=== PATIENT | female | born 1940 | race Caucasian/White ===

== ENCOUNTER 2017-10-31 13:09 | Emergency (ER) | payer MEDICARE, BC ==
[~2017-10-31] VITALS: Ht 160 cm; Wt 88.5 kg
[~2017-10-31 13:09] MED LIST: ABAC300; ACEASPCAF PO; ALBU90OI INH; ASPI325 PO; ASPI81CH PO; ASPI81EC PO; AZIT250 PO; BENZ100A PO; CHOL10002 PO; CIPR500 PO; CONEST.625 PO; CONEST.9 PO; CYAN1000 PO; CYAN1000I IM; DOCU100 PO; ERGO400 PO; GUAI600T33 PO; HYDACE10B PO; IBUP400 PO; LATA.005SO BOTHEYES; LOSA25 PO; LOSA50 PO; MAGOXI400 PO; METR500 PO; MICROZIDE12.5 M1 PO; MOXI400 PO; Norco 5-325 Ta1 EACH PO; ONDA4 PO; ONDA4ODT MM; OXYACE5T PO; POTA10T PO; PRAM.125 PO; PREMARIN; TRIAM/HCTZ; TRIHYD253A PO; Ultram50 MG PO; ZOLP10 PO
[2017-10-31 13:42] LABS: BASOPHILS ABSOLUTE AUTO 0.04 K/mm3 (0.00-0.23); BASOPHILS PERCENT AUTO 1 % (0-2); EOSINOPHILS ABSOLUTE AUTO 0.14 K/mm3 (0.00-0.68); EOSINOPHILS PERCENT AUTO 2 % (0-6); Hematocrit 43.9 % (33.0-51.0); IMMATURE GRAN ABSOLUTE AUTO 0.01 K/mm3 (0.00-0.10); IMMATURE GRAN PERCENT AUTO 0 % (0-1); LYMPHOCYTES ABSOLUTE AUTO 2.23 K/mm3 (0.84-5.20); LYMPHOCYTES PERCENT AUTO 37 % (21-46); MONOCYTES ABSOLUTE AUTO 0.39 K/mm3 (0.16-1.47); MONOCYTES PERCENT AUTO 6 % (4-13); Mean Corpuscular HGB 29.7 pg (26.0-34.0); Mean Corpuscular HGB Conc 31.9 g/dL (31.5-36.5); Mean Corpuscular Volume 93 fL (80-100); Mean Platelet Volume 9.9 fL (9.1-12.4); NEUTROPHILS ABSOLUTE AUTO 3.24 K/mm3 (1.96-9.15); NEUTROPHILS PERCENT AUTO 54 % (41-73); Platelet Count 230 K/mm3 (150-400); RDW Coefficient Variation 13.2 % (11.7-14.2); RDW Standard Deviation 45.2 fL (35.1-46.3); Red Blood Cell Count 4.71 M/mm3 (3.80-5.20); White Blood Cell Count 6.05 K/mm3 (4.00-11.30)
[2017-10-31] MEDS ORDERED: ELIQUIS5 MG PO (13:48)
[2017-10-31 13:53] LABS: International Normalized Ratio 1.07; Prothrombin Time Results 11.1 Sec (9.7-11.5)
[2017-10-31 14:01] LABS: Alanine Aminotransfer (ALT/SGP 20 U/L (12-78); Albumin, Blood 3.2 g/dL (3.4-5.0); Albumin/Globulin Ratio 0.8 (0.8-1.8); Alk Phos 47 U/L (50-136); Anion Gap 7 mmol/L (6-16); Aspartate Aminotrans (AST/SGOT 16 U/L (12-37); Bilirubin, Total 0.4 mg/dL (0.1-1.0); Blood Urea Nitrogen 11 mg/dL (8-24); Bun/Creatinine Ratio 12.4 (12.0-20.0); CO2, Blood 27 mmol/L (21-32); Calcium, Blood 8.5 mg/dL (8.5-10.1); Chloride, Blood 110 mmol/L (98-108); Creatinine, Blood 0.89 mg/dL (0.40-1.00); Glomerular Filtration Rate >60 (60-); Glucose, Blood 108 mg/dL (70-99); Potassium, Blood 3.9 mmol/L (3.5-5.5); Sodium, Blood 144 mmol/L (136-145); Total Protein, Blood 7.2 g/dL (6.4-8.2)
== END 2017-10-31 15:15 | disposition home or self-care (01) ==
LOC: ER 13:09
PROVIDERS: Physician Assistant
DX: M54.81 Occipital neuralgia (principal); I48.91 Unspecified atrial fibrillation; I10 Essential (primary) hypertension; Z88.8 Allergy status to other drugs, medicaments and biological substances; Z88.2 Allergy status to sulfonamides; Z79.899 Other long term (current) drug therapy; Z79.01 Long term (current) use of anticoagulants; Z87.891 Personal history of nicotine dependence; I65.23 Occlusion and stenosis of bilateral carotid arteries
CPT/HCPCS: 36415; 70450; 80053; 85025; 85610; 93880; 99284

== ENCOUNTER 2018-08-11 08:34 | Emergency (ER) | payer MEDICARE, BC ==
[~2018-08-11] VITALS: Ht 162.6 cm; Wt 83.9 kg
[~2018-08-11 08:34] MED LIST changes: +ELIQUIS5 MG PO
[2018-08-11] MEDS ORDERED: Premarin0.3 MG (09:08)
[2018-08-11] MEDS ORDERED: Hydrochloroth12.5 MG (09:09)
== END 2018-08-11 09:50 | disposition home or self-care (01) ==
LOC: ER 08:34
DX: G50.0 Trigeminal neuralgia (principal); Z88.2 Allergy status to sulfonamides; Z88.8 Allergy status to other drugs, medicaments and biological substances; Z79.899 Other long term (current) drug therapy; I10 Essential (primary) hypertension; I48.91 Unspecified atrial fibrillation; Z87.891 Personal history of nicotine dependence
CPT/HCPCS: 99282

== ENCOUNTER 2019-08-31 10:50 | Day surgery (SDC) | payer MEDICARE, BC ==
[~2019-08-31] VITALS: Ht 162.6 cm; Wt 91.0 kg
[~2019-08-31 10:50] MED LIST changes: +Hydrochloroth12.5 MG PO; +Norco 10-325 T1 EACH PO; +Premarin0.3 MG; +Premarin0.3 MG PO
--- NOTE | 2019-08-31 13:20 | NUR ---
LOOP RECORDER REMOVED; PT TOLERATED WELL.
--- NOTE | 2019-08-31 13:43 | NUR ---
LACW LOOP RECORDER EXPLANT SITE SOFT NON-TENDER WITH NO HEMATOMA AND NO BLEEDING WITH INTACT DRESSING/TEGADERM IN PLACE. PT SITTING UP DRINKING COFFEE.
--- NOTE | 2019-08-31 14:09 | NUR ---
DISCHARGE INSTRUCTIONS REVIEWED ALL QUESTIONS ANSWERED. 22 G IV DISCONTINUED FROM LEFT UPPER ARM WITH INTACT CANNULA. NO CHANGES TO LACW LOOP RECORDER EXPLANT SITE. PT ESCORTED OUT VIA WHEELCHAIR ESCORT.
== END 2019-08-31 12:00 | disposition home or self-care (01) ==
LOC: MHTC 10:50
DX: Z45.09 Encounter for adjustment and management of other cardiac device (principal)
CPT/HCPCS: 33286; 99152; J1644; J2250; J3010; J7040

== ENCOUNTER → 2022-07-02 | Outpatient (CLI) | payer MEDICARE, BC ==
[~2022-07-02] MED LIST changes: +Zithromax250 MG PO
== END | disposition home or self-care (01) ==
LOC: LAB SHORT 11:36 → LAB 11:36
DX: N39.0 Urinary tract infection, site not specified (principal)
CPT/HCPCS: 87077; 87086; 87186

== ENCOUNTER 2024-11-08 11:29 | Emergency (ER) | payer MEDICARE, BC ==
[~2024-11-08] VITALS: Ht 162.6 cm; Wt 81.7 kg
[2024-11-08] MEDS ORDERED: Ipratropium/Albuterol SulF 2.5-0.5MG/3 ML Amp INH ONE (12:00)
[2024-11-08 12:15] LABS: BASOPHILS ABSOLUTE AUTO 0.05 K/mm3 (0.00-0.23); BASOPHILS PERCENT AUTO 0 % (0-2); EOSINOPHILS ABSOLUTE AUTO 0.09 K/mm3 (0.00-0.68); EOSINOPHILS PERCENT AUTO 1 % (0-6); Hematocrit 37.9 % (33.0-51.0); Hemoglobin 12.7 g/dL (11.5-16.0); IMMATURE GRAN ABSOLUTE AUTO 0.07 K/mm3 (0.00-0.10); IMMATURE GRAN PERCENT AUTO 1 % (0-1); LYMPHOCYTES PERCENT AUTO 11 % (21-46); MONOCYTES ABSOLUTE AUTO 0.99 K/mm3 (0.16-1.47); MONOCYTES PERCENT AUTO 8 % (4-13); Mean Corpuscular HGB 29.6 pg (26.0-34.0); Mean Corpuscular HGB Conc 33.5 g/dL (31.5-36.5); Mean Corpuscular Volume 88 fL (80-100); Mean Platelet Volume 9.9 fL (9.1-12.4); NEUTROPHILS ABSOLUTE AUTO 9.52 K/mm3 (1.96-9.15); NEUTROPHILS PERCENT AUTO 79 % (41-73); Platelet Count 280 K/mm3 (150-400); RDW Standard Deviation 42.2 fL (35.1-46.3); Red Blood Cell Count 4.29 M/mm3 (3.80-5.20); White Blood Cell Count 12.02 K/mm3 (4.00-11.30)
[2024-11-08 12:28] LABS: International Normalized Ratio 1.17; Prothrombin Time Results 12.4 Sec (9.7-11.5)
[2024-11-08 12:36] LABS: Albumin, Blood 2.4 g/dL (3.4-5.0); Albumin/Globulin Ratio 0.5 (0.8-1.8); Bilirubin, Total 1.1 mg/dL (0.1-1.0); Bun/Creatinine Ratio 16.4 (12.0-20.0); Calcium, Blood 8.9 mg/dL (8.5-10.1); Creatinine, Blood 0.79 mg/dL (0.40-1.00); Globulin, Blood 4.6 g/dL (2.2-4.0); Potassium, Blood 3.5 mmol/L (3.5-5.5)
[2024-11-08] MEDS ORDERED: LASIX20 M2 PO (14:19)
[2024-11-08] MEDS ORDERED: AZIT250 PO (14:20)
[2024-11-08 14:49] VITALS: BP 134/76
[2024-11-08 15:40] LABS: Influenza A, PCR NEGATIVE (NEGATIVE); Influenza B, PCR NEGATIVE (NEGATIVE); Resp Syncytial Virus, PCR NEGATIVE (NEGATIVE); SARS-Cov-2 (COVID-19) PCR, MMC NEGATIVE (NEGATIVE)
== END 2024-11-08 15:14 | disposition home or self-care (01) ==
LOC: ER 11:29
PROVIDERS: Student in an Organized Health Care Education/Training Program
DX: R05.9 Cough, unspecified (principal); R06.00 Dyspnea, unspecified; K92.1 Melena; I10 Essential (primary) hypertension; I48.91 Unspecified atrial fibrillation; Z87.891 Personal history of nicotine dependence; Z79.2 Long term (current) use of antibiotics; Z79.899 Other long term (current) drug therapy; Z88.2 Allergy status to sulfonamides; Z88.8 Allergy status to other drugs, medicaments and biological substances; Z79.01 Long term (current) use of anticoagulants
CPT/HCPCS: 0241U; 71045; 80053; 82272; 83880; 84484; 85025; 85610; 86850; 86900; 86901; 93005; 93010; 94640; 94664; 99285-25

== ENCOUNTER 2025-03-12 01:53 | Observation (INO) | payer MEDICARE, BC ==
[~2025-03-12] VITALS: Ht 162.6 cm; Wt 86.5 kg
[~2025-03-12 01:53] MED LIST changes: +LASIX20 M2 PO
[2025-03-12 03:51] LABS: BASOPHILS ABSOLUTE AUTO 0.06 K/mm3 (0.00-0.23); BASOPHILS PERCENT AUTO 1 % (0-2); EOSINOPHILS ABSOLUTE AUTO 0.29 K/mm3 (0.00-0.68); EOSINOPHILS PERCENT AUTO 4 % (0-6); Hematocrit 41.4 % (33.0-51.0); Hemoglobin 13.3 g/dL (11.5-16.0); IMMATURE GRAN ABSOLUTE AUTO 0.01 K/mm3 (0.00-0.10); IMMATURE GRAN PERCENT AUTO 0 % (0-1); LYMPHOCYTES ABSOLUTE AUTO 1.63 K/mm3 (0.84-5.20); LYMPHOCYTES PERCENT AUTO 23 % (21-46); MONOCYTES ABSOLUTE AUTO 0.44 K/mm3 (0.16-1.47); MONOCYTES PERCENT AUTO 6 % (4-13); Mean Corpuscular HGB Conc 32.1 g/dL (31.5-36.5); Mean Corpuscular Volume 91 fL (80-100); NEUTROPHILS ABSOLUTE AUTO 4.59 K/mm3 (1.96-9.15); NEUTROPHILS PERCENT AUTO 65 % (41-73); NRBC ABSOLUTE 0.00 K/mm3 (0.00-0.02); NRBC Auto 0.0 /100 WBC (0.0-0.2); Platelet Count 196 K/mm3 (150-400); RDW Coefficient Variation 13.6 % (11.7-14.2); RDW Standard Deviation 46.2 fL (35.1-46.3)
[2025-03-12 04:09] LABS: Alanine Aminotransfer (ALT/SGP 13.0 U/L (12-78); Albumin, Blood 3.0 g/dL (3.4-5.0); Albumin/Globulin Ratio 0.8 (0.8-1.8); Anion Gap 8.0 mmol/L (3-11); Aspartate Aminotrans (AST/SGOT 14.0 U/L (12-37); Bilirubin, Total 0.5 mg/dL (0.1-1.0); Blood Urea Nitrogen 14.0 mg/dL (8-24); CO2, Blood 25.0 mmol/L (21-32); Calcium, Blood 8.5 mg/dL (8.5-10.1); Chloride, Blood 111.0 mmol/L (98-108); Creatinine, Blood 0.85 mg/dL (0.40-1.00); Globulin, Blood 3.6 g/dL (2.2-4.0); Glucose, Blood 101.0 mg/dL (70-99); Magnesium, Blood 1.8 mg/dL (1.6-2.4); Potassium, Blood 3.8 mmol/L (3.5-5.5); Sodium, Blood 140.0 mmol/L (136-145); Total Protein, Blood 6.6 g/dL (6.4-8.2)
[2025-03-12] MEDS ORDERED: Metoclopramide HCl 5MG / ML 2ML Vial IV ONE (04:45)
[2025-03-12 12:11] VITALS: BP 140/70
[2025-03-12] MEDS ORDERED: TIMO.25OPS BOTHEYES (12:31)
[2025-03-12] MEDS ORDERED: ENTRESTO 24 MG1 EAC2 PO (12:32)
--- NOTE | 2025-03-12 12:40 | NUR ---
pt arrived to 208 via gurney from ED, obtained report, pt is tx to bed, a/ox4, pleasant and cooperative with care, follows commadns well, denies pain at this time, just dizzy when she sits up or stands, states the room spins, lungs are clear t/o, resp even and unlabored, no cough noted, on r/a, hrr, no edema noted, ppp+1, cap refill<3 sec, vs stable, afebrile, piv to rh, site is clear and patent, btx4, abd flat soft nontender, voids without diff, skin c/w/d, yudelka, vivian, oriented to room layout and call system, call light in reach.
[2025-03-12 16:35] VITALS: BP 135/63
--- NOTE | 2025-03-12 19:11 | NUR ---
no acute changes this shift, pt continues to feel the room spinning when she attempts to sit up, is ok when laying down, call light in reach.
[2025-03-12 19:42] VITALS: BP 146/56
[2025-03-12] MEDS ORDERED: Timolol 0.25% Opth Soln 5 ml BOTHEYES SCH (21:00)
[2025-03-12] MEDS ORDERED: Latanoprost 0.005% Opth Soln 2.5 ML BOTHEYES SCH (21:00)
--- NOTE | 2025-03-13 02:57 | NUR ---
SHIFT SUMMARY NO ACUTE EVENTS DURING THIS SHIFT. PT REMAINED IN BED T/O THIS SHIFT. A/O X4. PT C/O SPINNING AND DIZZINESS. VSS. MECLIZINE ADMINISTERED ORDERED. PT DENIES SOB,N/V AND PAIN. BED AT THE LOWEST POSITION, CALL LIGHT W/I REACH. PT IS ABLE TO MAKE HER NEEDS KNOWN AND IS COOPERATIVE WITH CARE.
[2025-03-13 03:41] VITALS: BP 133/68
[2025-03-13 05:53] LABS: BASOPHILS ABSOLUTE AUTO 0.05 K/mm3 (0.00-0.23); BASOPHILS PERCENT AUTO 1 % (0-2); EOSINOPHILS ABSOLUTE AUTO 0.24 K/mm3 (0.00-0.68); EOSINOPHILS PERCENT AUTO 4 % (0-6); Hematocrit 37.9 % (33.0-51.0); Hemoglobin 12.3 g/dL (11.5-16.0); IMMATURE GRAN ABSOLUTE AUTO 0.01 K/mm3 (0.00-0.10); IMMATURE GRAN PERCENT AUTO 0 % (0-1); LYMPHOCYTES ABSOLUTE AUTO 1.63 K/mm3 (0.84-5.20); LYMPHOCYTES PERCENT AUTO 28 % (21-46); MONOCYTES ABSOLUTE AUTO 0.49 K/mm3 (0.16-1.47); MONOCYTES PERCENT AUTO 8 % (4-13); Mean Corpuscular HGB Conc 32.5 g/dL (31.5-36.5); Mean Corpuscular Volume 90 fL (80-100); NEUTROPHILS ABSOLUTE AUTO 3.39 K/mm3 (1.96-9.15); NEUTROPHILS PERCENT AUTO 58 % (41-73); NRBC ABSOLUTE 0.00 K/mm3 (0.00-0.02); NRBC Auto 0.0 /100 WBC (0.0-0.2); Platelet Count 200 K/mm3 (150-400); RDW Coefficient Variation 13.4 % (11.7-14.2); RDW Standard Deviation 44.1 fL (35.1-46.3)
[2025-03-13 06:16] LABS: Anion Gap 8.0 mmol/L (3-11); Blood Urea Nitrogen 11.0 mg/dL (8-24); CO2, Blood 25.0 mmol/L (21-32); Calcium, Blood 8.4 mg/dL (8.5-10.1); Chloride, Blood 109.0 mmol/L (98-108); Creatinine, Blood 0.82 mg/dL (0.40-1.00); Glucose, Blood 96.0 mg/dL (70-99); Potassium, Blood 3.4 mmol/L (3.5-5.5); Sodium, Blood 139.0 mmol/L (136-145)
[2025-03-13 07:08] VITALS: BP 134/76
--- NOTE | 2025-03-13 10:06 | NUR ---
NOTE RECEIVED MRI FORM. THIS RN WENT INTO PT ROOM TO COMPLETE SCREENING FORM. PT REPORTED, "I TOLD THEM I DON'T WANT MRI. 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 HICKEY. DR. HICKEY REPORTED "OK SHE DOESN'T HAVE TO HAVE IT,"
[2025-03-13 11:26] VITALS: BP 148/74
--- NOTE | 2025-03-13 14:36 | NUR ---
NOTE DR. HICKEY ORDERED ECHO. [facility] CLOSED ON HOLIDAY, DR. HICKEY NOTIFIED. REPORTED PT WILL GET TOMORROW
[2025-03-13 15:14] VITALS: BP 144/79
--- NOTE | 2025-03-13 18:33 | NUR ---
SHIFT SUMMARY PT A&OX4. PT ADMITTED DUE TO VERTIGO. PT REPORTS NO CHEST PAIN/GEN PAIN/SOB. PT ON TLE, NO TELE REPORTS. VSS. POTASSIUM REPLENISHED TODAY. PT IS SBA TO BSC. PT IN BED, BED IN LOWEST POSITION, CALL LIGHT IN REACH. PLAN FOR ECHO TOMORROW. PT EATS ADEQUATE. PT CONTINENT OF URINE AND BM. RAILS UP X2. PT GETTING ANTIVERT SCHEDULED. STILL REPORTS DIZZY WHEN AMBULATING AND SITTING UP.
[2025-03-13 20:11] VITALS: BP 159/67
[2025-03-14 00:56] VITALS: BP 137/64
--- NOTE | 2025-03-14 02:35 | NUR ---
SHIFT SUMMARY NO ACUTE EVENTS DURING THIS SHIFT. PT C/O DIZZINESS WHEN GETTING UP FORM BED TO USE THE BSC. PT REPORTED HAVING A GOOD DAY, AND SUDDENTLY FEELING DIZZY YESTERDAY AFTERNOON TO EVENING HRS. MECLIZINE ADMINISTERED ORDERED AT HS. PT DENIES PAIN AND DISCOMFORT, N/V, OR SOB. PLAN IS TO HAVE ECHO TODAY. BED AT THE LOWEST POSITION, CALL LIGHT W/I REACH. PT CALLS APPROPRIATELY, AND IS ABLE TO ADVOCATE HER NEEDS.
[2025-03-14 04:16] VITALS: BP 151/66
[2025-03-14 06:04] LABS: Anion Gap 9.0 mmol/L (3-11); Blood Urea Nitrogen 10.0 mg/dL (8-24); CO2, Blood 25.0 mmol/L (21-32); Calcium, Blood 8.9 mg/dL (8.5-10.1); Chloride, Blood 108.0 mmol/L (98-108); Creatinine, Blood 0.8 mg/dL (0.40-1.00); Glucose, Blood 93.0 mg/dL (70-99); Potassium, Blood 3.7 mmol/L (3.5-5.5); Sodium, Blood 138.0 mmol/L (136-145)
[2025-03-14 07:11] VITALS: BP 149/64
[2025-03-14] MEDS ORDERED: Timolol 0.25% Opth Soln 5 ml BOTHEYES SCH (08:00)
[2025-03-14] MEDS ORDERED: Ondansetron 4 MG SoluTab MM PRN (15:25)
--- NOTE | 2025-03-14 15:33 | NUR ---
Upon receiving a referral for spiritual care, I visited the patient. She is lying in bed and immediately talks about her vertigo and how challenging it is for her. She talks about the "being forced" to discharge when she states that she has seen very little improvement. She states that she live s alone (her spouse 5 yrs ago) and how her condition would not allow her to function independently or be at home without being a fall risk. She states that a cause has not been found for the vertigo which scares her because then she has no way to know how to recover or avoid it in the future. We talk about her [employer] marii and that it has been a source of peace and strength in challenging times. I reinforced helpful attitudes and practices and provided therapeutic listening, gries support, gentle nurses[employer] counselor and prayer. I will continue to remain available to the patient and family.
--- NOTE | 2025-03-14 15:52 | NUR ---
SUMMARY PT STILL HAS ONGOING DIZZINESS WITH MINIMAL ACTIVITY. PHYSICAL THERAPY ORDERED TO SHOW HER A MANUEVER THAT SHOULD HELP WITH VERTIGO. MECLIZINE IS SCHEDULED TID. PT CALLED THIS AFTERNOON TO REPORT NAUSEA WITH DIZZINESS, DOCTOR NOTIFIED AND ORDRED HEATHER PALOMINO. PT NOW RESTING IN BED. CALLING APPROPRIATELY. POSSIBLY DISCHARGING TOMORROW PER DOCTOR RUPERTO AND SHE RECOMMENDED PT TO SEE AN ENT
[2025-03-14 17:05] VITALS: BP 123/63
[2025-03-14 19:32] VITALS: BP 128/64
[2025-03-15 00:14] VITALS: BP 143/74
[2025-03-15 03:45] VITALS: BP 144/67
--- NOTE | 2025-03-15 04:52 | NUR ---
SUMMARY: PT A/OX4, CALLS APPROPRIATELY TO SPECIFY NEEDS AND IS PLEASANT AND COOPERATIVE W/CARE. SHE CONT'S TO REPORT VERTIGO W/SCHEDULED MECLIZINE RECEIVED PER EMAR. PT 1PA OOB TO [facility] [place] [place] FOR SAFETY. SHE REPORTS SOB W/EXERTION BUT NO DYSPNEA OBSERVED AND SHE FEELS LIKE SHE RECOVERS QUICKLY AT REST. PT ALSO HAS A CHRONIC COUGH AT BASELINE. SHE'S BEEN S.EUNICE-NSR W/BBB AVERAGING 50'S-60'S BPM BUT HAD BRIEF ASYMPTOMATIC EPISODES WHEN HR TOUCHED 40'S BPM. MD WAS MADE AWARE W/NO NEW ORDERS RECEIVED, SEE PREVIOUS NOTE FOR THOSE DETAILS. ALL OTHER VSS/AFEBRILE AND NO ACUTE CHANGES. WILL REPORT TO DAY RN.
--- NOTE | 2025-03-15 04:57 | NUR ---
ALERTED TO HR TOUCHING 40'S BPM (PREVIOUSLY AVERAGING 50'S-60'S) BUT NON-SUSTAINING AND ASYMPTOMATIC OF CARDIAC DISTRESS W/ALL OTHER VSS. NO NEW ORDERS RECEIVED BUT HE INSTRUCTED TO ALERT PROVIDER IF HR IS LESS THAN 40 OR PT BECOMES SYMPTOMATIC OF HR IN THE 40'S.
[2025-03-15 07:54] VITALS: BP 140/72
[2025-03-15 11:13] VITALS: BP 147/92
[2025-03-15] MEDS ORDERED: MECL25 PO (13:28)
[2025-03-15] MEDS ORDERED: ONDA4ODT MM (13:28)
--- NOTE | 2025-03-15 13:51 | NUR ---
DISCHARGE SUMMARY PT EDUCATED ON DISCHARGE PACKET, NEW PRESCRIPTIONS, AND EDUCATION ABOUT DIAGNOSIS. IV REMOVED. TELE REMOVED. PT CHAGNED INTO GOWN FROM HOME AND FAMILY PICKED UP. PT ESCORTED DOWN VIA WHEELCHAIR. NO NEW QUESTIONS OR CONCERNS PRIOR TO DC.
== END 2025-03-15 13:45 | disposition home health service (06) ==
LOC: ER 01:53 → MEDS 01:54 → ENPENDDIS 03-15 11:28 → MEDS 03-15 13:45
PROVIDERS: Family Medicine; Student in an Organized Health Care Education/Training Program; ADMIT Internal Medicine
DX: R42 Dizziness and giddiness (principal); I11.0 Hypertensive heart disease with heart failure; I50.22 Chronic systolic (congestive) heart failure; I48.0 Paroxysmal atrial fibrillation; R00.1 Bradycardia, unspecified; I65.23 Occlusion and stenosis of bilateral carotid arteries; Z66 Do not resuscitate; Z86.73 Personal history of transient ischemic attack (TIA), and cerebral infarction without residual deficits; Z87.891 Personal history of nicotine dependence; Z79.01 Long term (current) use of anticoagulants; Z79.899 Other long term (current) drug therapy; Z88.2 Allergy status to sulfonamides; Z88.8 Allergy status to other drugs, medicaments and biological substances; Z91.048 Other nonmedicinal substance allergy status
CPT/HCPCS: 36415; 70450; 70496; 70498; 80048; 80053; 83735; 84484; 85025; 93005; 93010; 93306; 96374-59; 97112; 97116; 97162; 99285-25; A9270; G0378; J2765; Q9967

== ENCOUNTER → 2025-03-27 | Outpatient (CLI) | payer MEDICARE, BC ==
[~2025-03-27] MED LIST changes: +CEFP200 PO; +ENTRESTO 24 MG1 EAC2 PO; +MECL25 PO; +TIMO.25OPS BOTHEYES
== END ==
LOC: LAB SHORT 17:40 → LAB 17:40
DX: N39.0 Urinary tract infection, site not specified (principal)
CPT/HCPCS: 87077; 87086; 87186

== ENCOUNTER → 2025-04-21 | Outpatient (CLI) | payer MEDICARE, BC | LOC: LAB 13:25 → LAB SHORT 13:25 | DX: N39.0 Urinary tract infection, site not specified (principal); A49.9 Bacterial infection, unspecified | CPT/HCPCS: 87077; 87086; 87186 ==